=== PATIENT | female | born 1970 | race Hispanic/Latino ===

== ENCOUNTER 2020-10-17 16:00 | Emergency (ER) | payer OTHER, BC ==
[~2020-10-17] VITALS: Ht 154.9 cm; Wt 86.2 kg
[2020-10-17] MEDS ORDERED: NAPROXEN500 MG PO (16:38)
[2020-10-17] MEDS ORDERED: METFORMIN HCL500 MG PO (16:38)
[2020-10-17] MEDS ORDERED: ATORVASTATIN CA10 MG PO (16:38)
[2020-10-17] MEDS ORDERED: NORCO 5-325 TA1 EACH PO (18:00)
== END 2020-10-17 18:10 | disposition home or self-care (01) ==
LOC: ED 16:00
DX: S16.1XXA Strain of muscle, fascia and tendon at neck level, initial encounter (principal); S39.012A Strain of muscle, fascia and tendon of lower back, initial encounter; W01.198A Fall on same level from slipping, tripping and stumbling with subsequent striking against other object, initial encounter; Z79.899 Other long term (current) drug therapy; Z79.84 Long term (current) use of oral hypoglycemic drugs
CPT/HCPCS: 72040; 72100; 96372; 99283-25; J1885